=== PATIENT | male | born 1980 | race Caucasian/White ===

== ENCOUNTER → 2021-04-26 | Outpatient (CLI) | payer OTHER | LOC: M RAD 08:59 | PROVIDERS: ATTEND Otolaryngology | DX: J32.4 Chronic pansinusitis (principal) ==

== ENCOUNTER 2021-07-31 08:29 | Day surgery (SDC) | payer OTHER ==
[~2021-07-31] VITALS: Ht 190.5 cm; Wt 94.5 kg
[~2021-07-31 08:29] MED LIST: ATOR1TAB21; LR 1,000 ML IV ONE; VITA1CAP25
[2021-07-31] MEDS ORDERED: ONDANSETRON 4MG/2ML VIAL As Ordered ONE (10:37)
[2021-07-31] MEDS ORDERED: fentaNYL 100 MCG/2 ML INJECTION As Ordered ONE (10:37)
[2021-07-31] MEDS ORDERED: ROCURONIUM BROMIDE 50 MG/5 ML VIAL As Ordered ONE (10:37)
[2021-07-31] MEDS ORDERED: MIDAZOLAM INJ 2MG/2ML VIAL (J2250 PER 1MG) As Ordered ONE (10:37)
[2021-07-31] MEDS ORDERED: propofoL 200 MG/20 ML VIAL As Ordered ONE (10:37)
[2021-07-31] MEDS ORDERED: dexameTHASONE 4 MG/ML 1ML VIAL (J1100 PER 1MG) As Ordered ONE (10:37)
[2021-07-31] MEDS ORDERED: LIDOCAINE 2% 100MG/5ML SDV (FOR ANES.) As Ordered ONE (10:37)
[2021-07-31] MEDS ORDERED: EPINEPHrine 1MG/ML INJ 30ML MD-VIAL As Ordered ONE (11:39)
[2021-07-31] MEDS ORDERED: METHYLENE BLUE 0.5% (5MG/ML) 10 ML AMP (PROVAYBLUE) As Ordered ONE (11:39)
[2021-07-31] MEDS ORDERED: LIDOCAINE W/EPINEPHRINE 1% 20ML VIAL As Ordered ONE (11:39)
[2021-07-31] MEDS ORDERED: SUGAMMADEX SODIUM 500 MG/5 ML VIAL (BRIDION) As Ordered ONE (11:57)
[2021-07-31] MEDS ORDERED: ACETAMINOPHEN 1000MG 100ML IV BTL (OFIRMEV) (J0131 PER 10MG) As Ordered ONE (11:57)
[2021-07-31] MEDS ORDERED: LR 1,000 ML IV SCH ×2 (12:40)
[2021-07-31] MEDS ORDERED: fentaNYL 100 MCG/2 ML INJECTION IV PRN (12:40)
[2021-07-31] MEDS ORDERED: oxyCODONE 5MG TAB PO PRN (12:40)
[2021-07-31] MEDS ORDERED: ONDANSETRON 4MG/2ML VIAL IV PRN (12:40)
[2021-07-31] MEDS ORDERED: ACETAMINOPH W/CODEINE #3 TAB UD PO PRN (12:45)
[2021-07-31 13:00] VITALS: BP 130/80
== END 2021-07-31 13:20 | disposition home or self-care (01) ==
LOC: M SDC 08:29
PROVIDERS: ATTEND Otolaryngology
DX: J34.3 Hypertrophy of nasal turbinates (principal); J31.0 Chronic rhinitis; F41.9 Anxiety disorder, unspecified; G43.909 Migraine, unspecified, not intractable, without status migrainosus
CPT/HCPCS: 30140; 88305; J0131; J0171; J1100; J2250; J2405; J3010; Q9968

== ENCOUNTER 2021-09-01 14:51 | Emergency (ER) | payer OTHER ==
[~2021-09-01] VITALS: Ht 185.4 cm; Wt 92.9 kg
[~2021-09-01 14:51] MED LIST changes: -LR 1,000 ML IV ONE
[2021-09-01 14:52] VITALS: BP 143/86
[2021-09-01] MEDS ORDERED: LIDOCAINE 1% MDV 20ML VIAL As Ordered ONE (15:14)
[2021-09-01] MEDS ORDERED: BOOSTRIX/ADACEL VACCINE (DIPHTH/PERTUSS/ACELL/TETANUS) 0.5ML SYR IM ONE (15:15)
[2021-09-01] MEDS ORDERED: LIDOCAINE 1% MDV 20ML VIAL SC ONE (15:15)
[2021-09-01] MEDS ORDERED: CIPROFLOXACIN 500MG TABLET PO ONE (15:35)
[2021-09-01] MEDS ORDERED: CIPR-249 PO (15:36)
== END 2021-09-01 15:44 | disposition home or self-care (01) ==
LOC: M ED 14:51
DX: S00.452A Superficial foreign body of left ear, initial encounter (principal); Y92.9 Unspecified place or not applicable; Y93.9 Activity, unspecified; Y99.9 Unspecified external cause status

== ENCOUNTER → 2022-03-21 | Outpatient (CLI) | payer OTHER ==
[~2022-03-21] MED LIST changes: +CIPR-249 PO
== END ==
LOC: M PLARAD 07:54
PROVIDERS: ATTEND Orthopaedic Surgery Hand Surgery
DX: R22.32 Localized swelling, mass and lump, left upper limb (principal)

== ENCOUNTER 2023-01-12 09:11 | Emergency (ER) | payer OTHER ==
[~2023-01-12] VITALS: Ht 185.4 cm; Wt 90.9 kg
[2023-01-12 09:22] VITALS: TEMP 97.5
[2023-01-12 10:05] LABS: BASO % 0.5 % (0.0-1.0); EOS % 0.7 % (0.0-3.0); HEMATOCRIT 46.3 % (42.0-52.0); LYMPH # 1.5 10^3/uL (1.5-5.0); LYMPH % 25.8 % (24.0-44.0); MEAN CORPUSCULAR HEMOGLOBIN 31.3 pg (27.0-33.0); MEAN CORPUSCULAR HGB CONC 34.6 g/dl (32.0-36.5); MEAN CORPUSCULAR VOLUME 90.4 fl (80.0-96.0); MONO # 0.4 10^3/uL (0.0-0.8); MONO % 6.4 % (2.0-8.0); NEUTROPHILS # 3.7 10^3/uL (1.5-8.5); NEUTROPHILS % 65.7 % (36.0-66.0); PLATELET COUNT, AUTOMATED 171 10^3/uL (150-450); RED BLOOD COUNT 5.12 10^6/uL (4.30-6.10); WHITE BLOOD COUNT 5.6 10^3/uL (4.0-10.0)
[2023-01-12 10:32] LABS: LIPASE 30 U/L (12-53)
[2023-01-12 10:33] LABS: CK-MB VALUE MASS < 1.0 NG/ML (<3.6)
[2023-01-12 10:35] LABS: ALBUMIN 4.1 G/DL (3.2-5.2); ALKALINE PHOSPHATASE 70 U/L (46-116); ALT/SGPT 24 U/L (7.0-40); AST/SGOT 28 U/L (<34); BILIRUBIN,DIRECT 0.2 MG/DL (<0.4); BILIRUBIN,TOTAL 1.1 MG/DL (0.3-1.2); BLOOD UREA NITROGEN 10 MG/DL (9-23); CALCIUM LEVEL 8.7 MG/DL (8.5-10.1); CARBON DIOXIDE LEVEL 25 MMOL/L (20-31); CHLORIDE LEVEL 108 MMOL/L (98-107); GLOMERULAR FILTRATION RATE > 60.0 (>60); GLUCOSE, FASTING 75 MG/DL (60-100); POTASSIUM SERUM 4.6 MMOL/L (3.5-5.1); SODIUM LEVEL 144 MMOL/L (136-145); TOTAL PROTEIN 6.9 G/DL (5.7-8.2)
[2023-01-12 10:36] LABS: THYROID STIMULATING HORMONE 1.899 uIU/ML (0.55-4.78)
[2023-01-12 10:38] LABS: CPK CREATINE PHOSPHOKINASE 72 U/L (46-171); MB/CK RELATIVE INDEX 1.38 (< OR =4)
[2023-01-12] MEDS ORDERED: ISOVUE-370 76% 100ML VIAL As Ordered ONE (11:04)
[2023-01-12 11:22] VITALS: O2SAT 100
[2023-01-12 12:47] VITALS: BP 148/92
== END 2023-01-12 12:50 | disposition home or self-care (01) ==
LOC: EDBD 09:11 → M ED 09:11
DX: R07.9 Chest pain, unspecified (principal); F43.10 Post-traumatic stress disorder, unspecified; F10.10 Alcohol abuse, uncomplicated; Z79.899 Other long term (current) drug therapy
CPT/HCPCS: 36415; 71045; 71275; 80048; 80076; 82550; 82553; 83690; 84443; 84484; 85025; 93005; 93041; 94760; 99285; Q9967